=== PATIENT | male | born 1950 | race Caucasian/White ===

== ENCOUNTER 2016-07-13 20:40 | Emergency (ER) | payer OTHER ==
[~2016-07-13] VITALS: Ht 182.9 cm; Wt 102.6 kg
[2016-07-13 22:33] LABS: EOSINOPHIL (%) 1.2 % (0-5); EOSINOPHIL COUNT 0.1 K/uL (0-0.3); HEMATOCRIT 39.1 % (38.0-50.0); IMMATURE GRANULOCYTE (%) 0.2 % (0.0-0.7); LYMPHOCYTE COUNT 0.9 K/uL (1.0-2.8); MCH 32.4 PG (29.0-34.0); MCHC 33.8 G/DL (30.0-36.0); MCV 95.8 FL (86-99); MEAN PLAT.VOLUME 9.6 uM^3 (9.0-12.4); MONOCYTE (%) 7.9 % (3-12); MONOCYTE COUNT 0.5 K/uL (0-0.8); NEUTROPHIL (%) 76.6 % (45-76); PLATELET COUNT 214 K/uL (156-360); RBC DIS.WIDTH-CV 13.5 % (11.8-14.6); RBC DIS.WIDTH-SD 47.6 % (39-53); RED BLOOD COUNT 4.08 M/uL (4.00-5.50); WHITE BLOOD COUNT 6.5 K/uL (4.1-10.2)
[2016-07-13 22:41] LABS: CHLORIDE 104 mEq/L (99-109); POTASSIUM 4.9 mEq/L (3.7-5.4); SODIUM 137 mEq/L (136-147)
[2016-07-13 22:42] LABS: GLUCOSE 292 mg/dL (70-99)
[2016-07-13 22:44] LABS: ANION GAP 7 MEQ/L (2-14)
[2016-07-13 22:46] LABS: GFR ESTIMATE (CALCULATED) > 59 mL/min/
[2016-07-13 22:47] LABS: UREA NITROGEN (BUN) 15 mg/dL (9-23)
[2016-07-14 00:02] LABS: TROP-I INTERPRETATION NEGATIVE; TROPONIN-I < 0.01 ng/mL (0.0-0.30)
[2016-07-14 01:37] LABS: TROP-I INTERPRETATION NEGATIVE; TROPONIN-I < 0.01 ng/mL (0.0-0.30)
[2016-07-14 01:45] VITALS: BP 112/66
== END 2016-07-14 01:45 | disposition home or self-care (01) ==
LOC: EME 20:40
PROVIDERS: Emergency Medicine
PROC: 09C47ZZ Extirpation of Matter from Left External Auditory Canal, Via Natural or Artificial Opening (ICD-10-PCS; principal; 2016-07-13)
DX: H61.22 Impacted cerumen, left ear (principal); I10 Essential (primary) hypertension; Z79.82 Long term (current) use of aspirin
CPT/HCPCS: 71010; 80048; 84484; 85025; 93005; 99281; 99284